=== PATIENT | male | born 1995 | race Caucasian/White ===

== ENCOUNTER 2017-06-24 20:20 | Inpatient (IN) | payer OTHER ==
[2017-06-24 20:27] VITALS: BMI 26.3
[2017-06-24] MEDS ORDERED: SODIUM CHLORIDE 0.9% 1000 ML INFUS.BAG IV ONE (23:26)
--- NOTE | 2017-06-24 23:39 | PDOC ---
History of Present Illness - General Chief Complaint: Pain, Acute Stated Complaint: PAIN, ACUTE Time Seen by Provider: 06/24/17 22:50 - History of Present Illness Initial Comments: 06/24/17 23:36 CHIEF COMPLAINT: abdominal pain HISTORY OF PRESENT ILLNESS: 22 yo M with of IBS sent to ED by PCP Carter for c/ o abdominal x 2 weeks. Patient states he has had intermittent abdominal pain and cramping over the past 2 weeks but today it became constant. Patient states he saw his doctor today who suspected appendicitis and sent him to the ED. Patient denies any fever, chills, nausea, vomiting but reports one episode diarrhea today. PAST MEDICAL HISTORY: Denies past medical history FAMILY HISTORY: Denies SOCIAL HISTORY: Denies tobacco, alcohol, illicit drug use. SURGICAL HISTORY: Denies ALLERGIES: No known drug allergies REVIEW OF SYSTEMS General/Constitutional: Denies fever or chills. Denies weakness, weight change. HEENT: Denies change in vision. Denies ear pain or discharge. Denies sore throat. Cardiovascular: Denies chest pain or shortness of breath. Respiratory: Denies cough, wheezing, or hemoptysis. Gastrointestinal: One episode diarrhea today. Denies nausea, vomiting, constipation. Denies rectal bleeding. Genitourinary: Denies dysuria, frequency, or change in urination. Musculoskeletal: Denies joint or muscle swelling or pain. Denies neck or back pain. Skin and breasts: Denies rash or easy bruising. Neurologic: Denies headache, vertigo, loss of consciousness, or loss of sensation PHYSICAL EXAM General Appearance: Well-appearing, appropriately dressed. No apparent distress. HEENT: EOMI, PERRLA, normal ENT inspection, normal voice, TMs normal, pharynx normal. No conjunctival pallor. No photophobia, scleral icterus. Respiratory/Chest: Lungs CTAB. Cardiovascular: RRR. S1, S2. Gastrointestinal/Abdominal: +tenderness to McBurney's point. Normal bowel sounds. Abdomen soft, non-distended. No tenderness or rebound tenderness. No organomegaly, pulsatile mass, guarding, hernia, hepatomegaly, splenomegaly. Musculoskeletal/Extremities: Normal inspection. FROM of all extremities, normal capillary refill. Pelvis Stable. No CVA tenderness. No tenderness to extremities, pedal edema, swelling, erythema or deformity. Integumentary: Appropriate color, dry, warm. No cyanosis, erythema, jaundice or rash Neurologic: hat blocking operator II-XII intact. Fully oriented, alert. Appropriate mood/affect. Motor strength 5/5. No appreciable EOM palsy, facial droop or sensory deficit. 06/25/17 05:02 Past History - Past Medical History Allergies/Adverse Reactions: Allergies Allergy/AdvReac Type Severity Reaction Status Date / Time No Known Allergies Allergy Unverified 03/29/14 16:25 Home Medications: Ambulatory Orders NK [No Known Home Medication] 06/24/17 - Psycho/Social/Smoking Cessation Hx Suicidal Ideation: No Smoking History: Current every day smoker Number of Cigarettes Smoked Daily: 6 Information on smoking cessation initiated: No Hx Alcohol Use: No Drug/Substance Use Hx: No *Physical Exam - Vital Signs Last Vital Signs Temp Pulse Resp BP Pulse Ox 99 F 95 H 18 129/80 97 06/24/17 20:25 06/24/17 20:25 06/24/17 20:25 06/24/17 20:25 06/24/17 20:25 ED Treatment Course - LABORATORY CBC & Chemistry Diagram: 06/25/17 00:15 06/25/17 00:15 Medical Decision Making - Medical Decision Making 06/24/17 23:39 22 yo M sent to ED by PCP for c/o abdominal x 2 weeks. -CBC, CMP, lipase, lactic acid -IVF -Ultrasound eval for appy 06/25/17 02:28 Ultrasound highly suspicious for appy. Will admit to admitting physician MD Stevens for MD Machado. -500 mg Flagyl -1g Cipro 06/25/17 04:38 MD Stevens paged twice without callback. Will admit to hospitalist. 06/25/17 05:02 *DC/Admit/Observation/Transfer Diagnosis at time of Disposition: Appendicitis Qualifiers: Appendicitis type: acute appendicitis Acute appendicitis type: unspecified acute appendicitis type Qualified Code(s): K35.80 - Unspecified acute appendicitis - Discharge Dispostion Admit: Yes - Referrals Referrals: Elmo Machado MD [Primary Care Provider] -
[2017-06-25] MEDS ORDERED: LIDOCAINE HCL 1%, 10 MG/ML (20ML VIAL) IJ ONE ×2
[2017-06-25] MEDS ORDERED: BUPIVACAINE HCL/PF 0.5% (5MG/ML) 10 ML VIAL IJ ONE ×2
[2017-06-25 00:35] LABS: BASOPHIL 0.3 % (0-2.0); EOSINOPHIL 1.4 % (0-4.5); MCH 31.2 pg (25.7-33.7); MCHC 33.7 g/dl (32.0-35.9); MEAN CELL VOLUME 92.6 fl (80-96); MEAN PLT VOLUME 9.5 fl (7.5-11.1); NEUTROPHILS 65.9 % (42.8-82.8); PLATELET COUNT 239 K/MM3 (134-434); RDW 13.1 % (11.9-15.9); WHITE BLOOD COUNT 11.3 K/mm3 (4.0-10.0)
[2017-06-25 01:12] LABS: ALBUMIN 4.2 g/dl (3.4-5.0); ANION GAP 7 (8-16); CO2 30 mmol/L (21-32); CREATININE 0.9 mg/dL (0.7-1.3); GLUCOSE,RANDOM 89 mg/dL (74-106); SGOT/AST 7 U/L (15-37); SGPT/ALT 27 U/L (12-78)
[2017-06-25 01:13] LABS: ALK PHOS 60 U/L (45-117); BILIRUBIN,TOTAL 0.6 mg/dL (0.2-1.0); TOT PROT 7.2 g/dl (6.4-8.2)
[2017-06-25 01:44] LABS: URINE APPEARANCE CLEAR; URINE BILIRUBIN NEGATIVE (NEGATIVE); URINE BLOOD NEGATIVE (NEGATIVE); URINE COLOR LTYELLOW; URINE GLUCOSE (UA) NEGATIVE (NEGATIVE); URINE KETONE NEGATIVE (NEGATIVE); URINE LEUK ESTERASE NEGATIVE (NEGATIVE); URINE NITRITE NEGATIVE (NEGATIVE); URINE PROTEIN NEGATIVE (NEGATIVE); URINE UROBILINOGEN NEGATIVE mg/dL (0.2-1.0)
[2017-06-25] MEDS ORDERED: METRONIDAZOLE 500 MG PREMIXED 100 ML IVPB ONE ×2 (02:24→02:27)
[2017-06-25] MEDS ORDERED: CEFTRIAXONE 1 GM in DEXTROSE 5%-WATER - 50 ML IVPB ONE (02:24)
[2017-06-25] MEDS ORDERED: CEFTRIAXONE 50 ML ONE (02:27)
--- NOTE | 2017-06-25 04:51 | HP ---
CHIEF COMPLAINT: Abdominal Pain PCP: Dr. Stacy Stevens HISTORY OF PRESENT ILLNESS: This is a 22 y/o male with a past medical history of IBS. Who presents to the ED with right sided abdominal pain x 2 weeks, and intermittent diarrhea. Patient reports taking Advil with little relief. Patient denies fever, chills, cough, SOB, CP, N/V, dysuria. ER course was notable for: (1) Pelvic/Bladder US- Highly suspicious AP (2) WBC 11.3 (3) Recent Travel: None PAST MEDICAL HISTORY: IBS PAST SURGICAL HISTORY: Denies Social History: Smoking: None Alcohol: None Drugs: None Lives with family Family History: Father: DM Grandfather: Alzheimer's Grandmother: Colon Ca Allergies No Known Allergies Allergy (Unverified 03/29/14 16:25) HOME MEDICATIONS: Home Medications Medication Instructions Recorded NK [No Known Home Medication] 06/24/17 REVIEW OF SYSTEMS CONSTITUTIONAL: Absent: fever, chills, diaphoresis, generalized weakness, malaise, loss of appetite, weight change HEENT: Absent: rhinorrhea, nasal congestion, throat pain, throat swelling, difficulty swallowing, mouth swelling, ear pain, eye pain, visual changes CARDIOVASCULAR: Absent: chest pain, syncope, palpitations, irregular heart rate, lightheadedness , peripheral edema RESPIRATORY: Absent: cough, shortness of breath, dyspnea with exertion, orthopnea, wheezing, stridor, hemoptysis GASTROINTESTINAL: abdominal pain, diarrhea Absent: abdominal distension, nausea, vomiting, constipation, melena, hematochezia GENITOURINARY: Absent: dysuria, frequency, urgency, hesitancy, hematuria, flank pain, genital pain MUSCULOSKELETAL: Absent: myalgia, arthralgia, joint swelling, back pain, neck pain SKIN: Absent: rash, itching, pallor HEMATOLOGIC/IMMUNOLOGIC: Absent: easy bleeding, easy bruising, lymphadenopathy, frequent infections ENDOCRINE: Absent: unexplained weight gain, unexplained weight loss, heat intolerance, cold intolerance NEUROLOGIC: Absent: headache, focal weakness or paresthesias, dizziness, unsteady gait, seizure, mental status changes, bladder or bowel incontinence PSYCHIATRIC: Absent: anxiety, depression, suicidal or homicidal ideation, hallucinations. PHYSICAL EXAMINATION Vital Signs - 24 hr 06/24/17 06/25/17 20:25 02:43 Temperature 99 F 98.1 F Pulse Rate 95 H Respiratory 18 Rate Blood Pressure 129/80 O2 Sat by Pulse 97 Oximetry (%) GENERAL: Awake, alert, and fully oriented, in no acute distress. HEAD: Normal with no signs of trauma. EYES: Pupils equal, round and reactive to light, extraocular movements intact, sclera anicteric, conjunctiva clear. No lid lag. EARS, NOSE, THROAT: Ears normal, nares patent, oropharynx clear without exudates. Moist mucous membranes. NECK: Normal range of motion, supple without lymphadenopathy, JVD, or masses. LUNGS: Breath sounds equal, clear to auscultation bilaterally. No wheezes, and no crackles. No accessory muscle use. HEART: Regular rate and rhythm, normal S1 and S2 without murmur, rub or gallop. ABDOMEN: Soft, not distended, no guarding, no masses. No hepatomegaly or splenomegaly. LLQ/RLQ/RMQ tenderness, hypoactive bowel sounds, +McBurney's point, + rebound tenderness MUSCULOSKELETAL: Normal range of motion at all joints. No bony deformities or tenderness. No CVA tenderness. UPPER EXTREMITIES: 2+ pulses, warm, well-perfused. No cyanosis. No clubbing. No peripheral edema. LOWER EXTREMITIES: 2+ pulses, warm, well-perfused. No calf tenderness. No peripheral edema. NEUROLOGICAL: Cranial nerves II-XII intact. Normal speech. Normal gait. PSYCHIATRIC: Cooperative. Good eye contact. Appropriate mood and affect. SKIN: Warm, dry, normal turgor, no rashes or lesions noted, normal capillary refill. Laboratory Results - last 24 hr 06/25/17 06/25/17 06/25/17 00:15 00:15 00:15 WBC 11.3 H RBC 5.29 Hgb 16.5 Hct 49.0 MCV 92.6 MCH 31.2 MCHC 33.7 RDW 13.1 Plt Count 239 MPV 9.5 Neutrophils % 65.9 Lymphocytes % 25.1 Monocytes % 7.3 Eosinophils % 1.4 Basophils % 0.3 Sodium 138 Potassium 4.0 Chloride 101 Carbon Dioxide 30 Anion Gap 7 L BUN 16 Creatinine 0.9 Creat Clearance w eGFR > 60 Random Glucose 89 Lactic Acid Calcium 9.0 Total Bilirubin 0.6 AST 7 L ALT 27 Alkaline Phosphatase 60 Total Protein 7.2 Albumin 4.2 Lipase 96 Urine Color Urine Appearance Urine pH Urine Protein Urine Glucose (UA) Urine Ketones Urine Blood Urine Nitrite Urine Bilirubin Urine Urobilinogen Ur Leukocyte Esterase 06/25/17 06/25/17 00:15 01:30 WBC RBC Hgb Hct MCV MCH MCHC RDW Plt Count MPV Neutrophils % Lymphocytes % Monocytes % Eosinophils % Basophils % Sodium Potassium Chloride Carbon Dioxide Anion Gap BUN Creatinine Creat Clearance w eGFR Random Glucose Lactic Acid 0.9 Calcium Total Bilirubin AST ALT Alkaline Phosphatase Total Protein Albumin Lipase Urine Color Ltyellow Urine Appearance Clear Urine pH 6.0 Urine Protein Negative Urine Glucose (UA) Negative Urine Ketones Negative Urine Blood Negative Urine Nitrite Negative Urine Bilirubin Negative Urine Urobilinogen Negative Ur Leukocyte Esterase Negative ASSESSMENT/PLAN: This is a 22 y/o male with a PMHx of IBS. Admitted to M/S for Acute Appendicitis for further evaluation of their emergent condition. Problem List - Problem (1) Appendicitis Assessment/Plan: - Likely due to Appendicitis vs IBS vs Gastritis - Montemayor Score 7 - Pelvic/Bladder US- suspicious for AP - Appreciate Surgical Consult - WBC 11.3 no shift, LA- wnl - Flagyl, Rocephin, Mefoxin given in ED - NPO - IVF - Morphine Sulfate prn - Monitor vitals Code(s): K37 - UNSPECIFIED APPENDICITIS Qualifiers: Appendicitis type: acute appendicitis Acute appendicitis type: unspecified acute appendicitis type Qualified Code(s): K35.80 - Unspecified acute appendicitis (2) Abdominal pain Assessment/Plan: - See Above Code(s): R10.9 - UNSPECIFIED ABDOMINAL PAIN (3) Leukocytosis Assessment/Plan: - Possibly due to AP vs Inflammation - Repeat CBC tomorrow - Empirically treated with ABX in ED - Monitor vitals Code(s): D72.829 - ELEVATED WHITE BLOOD CELL COUNT, UNSPECIFIED (4) DVT prophylaxis Assessment/Plan: - OOB - SCDs Code(s): SCX4792 - Visit type - Emergency Visit Emergency Visit: Yes ED Registration Date: 06/25/17 Care time: The patient presented to the Emergency Department on the above date and was hospitalized for further evaluation of their emergent condition. - New Patient This patient is new to me today: Yes Date on this admission: 06/25/17 - Critical Care Critical Care patient: No
[2017-06-25] MEDS ORDERED: DEXTROSE 5%-0.45% SALINE 1,000 ML IV SCH (05:00)
[2017-06-25] MEDS ORDERED: cefOXitin SODIUM 2 GM VIAL (RESTRICTED TO ID) IVPB ONE ×4 (05:12→20:30)
[2017-06-25] MEDS ORDERED: LORazepam 0.5 MG TABLET PO ONE (05:36)
[2017-06-25] MEDS ORDERED: CEFOXITIN SODIUM 1 GM in DEXTROSE 5%-WATER - 100 ML IVPB ONE ×2 (06:00→20:30)
[2017-06-25] MEDS ORDERED: morphine CARPU-JECT 2 MG/1 ML DISP.SYRIN IVPUSH PRN ×2 (06:23→16:22)
--- NOTE | 2017-06-25 11:01 | CONSULT ---
Consult Consult Specialty:: General Surgery Referred by:: ER Reason for Consultation:: appendicitis - History of Present Illness Chief Complaint: RLQ pain with diarrhea History of Present Illness: 22yo generally healthy M with h/o IBS with constipation on no meds noticed a small lump in his RLQ on 06/15 and began having intermittent central abdominal pain since then. A few days ago, he began having RLQ pain, which got worse, associated with some diarrhea, and he went to his PMD who sent him to ER for evaluation for appendicitis. WBC was 11.3, he was afebrile, and US showed dilated blind-ending tubular structure with edema, surrounding fluid but no discrete collection and likely appendicolith(s) present. He was admitted to hospitalist and surgery consulted for appendicitis. His pain this morning is better. No N/V, he is hungry. - History Source History Provided By: Patient Limitations to Obtaining History: No Limitations - Past Medical History Gastrointestinal: Yes: Constipation, Irritable Bowel Disease (in teens - tends to constipation, but takes no meds and cannot characterize usual interval) - Past Surgical History Additional Surgical History: sutures for laceration from mirror right forearm at 16 - Alcohol/Substance Use Hx Alcohol Use: Yes (1-2x/year) History of Substance Use: reports: Marijuana Date of Last Use: 06/23/17 (about 3x/week) - Smoking History Smoking history: Current every day smoker Have you smoked in the past 12 months: Yes Aproximately how many cigarettes per day: 10 (1/2ppd x 5 yrs) Home Medications - Allergies Allergies/Adverse Reactions: Allergies Allergy/AdvReac Type Severity Reaction Status Date / Time No Known Allergies Allergy Unverified 03/29/14 16:25 - Home Medications Home Medications: Ambulatory Orders NK [No Known Home Medication] 06/24/17 Family Disease History - Family Disease History Family Disease History: Diabetes: Father, CA: Grandparent (colon; other GP Alzheimer's), Other: Grandparent Review of Systems - Review of Systems Constitutional: denies: Chills, Fever Eyes: reports: Other (wears glasses). denies: Blurred Vision, Recent Change in Vision HENT: denies: Difficult Swallowing, Throat Pain Neck: denies: Swollen Glands, Tenderness Cardiovascular: denies: Chest Pain, Palpitations Respiratory: denies: Cough, SOB Gastrointestinal: reports: Abdominal Pain, Constipation, Diarrhea. denies: Nausea, Vomiting Genitourinary: denies: Burning, Dysuria Musculoskeletal: denies: Back Pain, Joint Swelling Integumentary: denies: Change in Color, Rash Neurological: denies: Dizziness, Headache Physical Exam Vital Signs: Vital Signs Temperature 97.9 F 06/25/17 08:13 Pulse Rate 82 06/25/17 08:13 Respiratory Rate 18 06/25/17 08:13 Blood Pressure 123/77 06/25/17 08:13 O2 Sat by Pulse Oximetry (%) 100 06/25/17 07:05 Constitutional: Yes: Well Nourished, No Distress, Calm Eyes: Yes: Conjunctiva Clear, EOM Intact HENT: Yes: Atraumatic, Normocephalic Cardiovascular: Yes: Regular Rate and Rhythm. No: Murmur Respiratory: Yes: Regular, CTA Bilaterally Gastrointestinal: Yes: Normal Bowel Sounds, Soft, Tenderness (focal at McBurney' s in RLQ with some referred tend from LLQ, no R/G). No: Distention, Tenderness , Rebound ...Rectal Exam: Yes: Deferred Renal/: No: CVA Tenderness - Left, CVA Tenderness - Right Musculoskeletal: No: Back Pain, Joint Swelling Extremities: No: Cool, Cyanosis Edema: No Peripheral Pulses WNL: Yes Integumentary: Yes: Other (scar on right forearm). No: Rash Neurological: Yes: Alert, Oriented Psychiatric: Yes: Alert, Oriented Labs: CBC, BMP 06/25/17 00:15 06/25/17 00:15 Imaging - Results Ultrasound: Report Reviewed (appendicolith with acute appendicitis, no discrete fluid collection in RLQ) Problem List - Problems (1) Acute appendicitis with localized peritonitis Assessment/Plan: NPO/IVF pain meds prn IV antibiotics GI/DVT prophylaxis discussed R/B/A of laparoscopic possible open appendectomy with patient including but not limited to bleeding, infection, injury to adjacent structures , intestinal leak or injury, intraabdominal abscess; alternatives include antibiotics, no surgery with risks of emergent surgery, recurrence, sepsis Patient wishes to proceed with operation. Plan surgery for ~2pm today. Will sign informed consent for same. Anticipate resuming po postop and likely d/c home in am if ambulating, voiding, tolerating diet, pain controlled with oral meds. Code(s): K35.3 - ACUTE APPENDICITIS WITH LOCALIZED PERITONITIS
--- NOTE | 2017-06-25 12:14 | PN ---
Physical Exam: SUBJECTIVE: Patient seen and examined OBJECTIVE: Vital Signs Period Temp Pulse Resp BP Sys/Garcia Pulse Ox Last 24 Hr 97.9 F-98 F 70-82 18-18 113-124/71-77 100-100 GENERAL: The patient is awake, alert, and fully oriented, in no acute distress. HEAD: Normal with no signs of trauma. EYES: PERRL, extraocular movements intact, sclera anicteric, conjunctiva clear. No ptosis. ENT: Ears normal, nares patent, oropharynx clear without exudates, moist mucous membranes. NECK: Trachea midline, full range of motion, supple. LUNGS: Breath sounds equal, clear to auscultation bilaterally, no wheezes, no crackles, no accessory muscle use. HEART: Regular rate and rhythm, S1, S2 without murmur, rub or gallop. ABDOMEN: Soft, nontender, nondistended, normoactive bowel sounds, no guarding, no rebound, no hepatosplenomegaly, no masses. EXTREMITIES: 2+ pulses, warm, well-perfused, no edema. NEUROLOGICAL: Cranial nerves II through XII grossly intact. Normal speech, gait not observed. PSYCH: Normal mood, normal affect. SKIN: Warm, dry, normal turgor, no rashes or lesions noted Laboratory Results - last 24 hr 06/25/17 05:00 Blood Type O POSITIVE Antibody Screen Negative Active Medications Generic Name Dose Route Start Last Admin Trade Name Freq PRN Reason Stop Dose Admin Cefoxitin Sodium 1 gm 06/25/17 12:00 Mefoxin (Restricted To Id) - IVPB 06/25/17 12:01 ONCE ONE Protocol Dextrose/Sodium Chloride 1,000 mls @ 100 mls/hr 06/25/17 05:00 06/25/17 05:13 D5-1/2ns - IV 100 mls/hr ASDIR VANESA Administration Morphine Sulfate 2 mg 06/25/17 06:23 Morphine Injection - IVPUSH Q6H PRN PAIN ASSESSMENT/PLAN:
[2017-06-25] MEDS ORDERED: CEFOXITIN SODIUM 1 GM in DEXTROSE 5%-WATER 100 ML IVPB ONE (12:30)
[2017-06-25] MEDS ORDERED: CEFOXITIN SODIUM IVPB ONE (12:30)
[2017-06-25] MEDS ORDERED: DEXTROSE 5% IVPB ONE (12:30)
[2017-06-25] MEDS ORDERED: WATER IVPB ONE (12:30)
[2017-06-25] MEDS ORDERED: DEXAMETHASONE SOD PHOSPHATE 4 MG/1 ML VIAL ONE (13:29)
[2017-06-25] MEDS ORDERED: MIDAZOLAM HCL 2 MG/2 ML SINGLE DOSE VIAL ONE (13:29)
[2017-06-25] MEDS ORDERED: ROCURONIUM BROMIDE 50 MG/5 ML VIAL ONE ×2 (13:29→14:45)
[2017-06-25] MEDS ORDERED: PROPOFOL 20 ML ONE (13:29)
[2017-06-25] MEDS ORDERED: BUPIVACAINE HCL/PF 0.5% (5MG/ML) 10 ML VIAL ONE (14:08)
[2017-06-25] MEDS ORDERED: LIDOCAINE HCL 1%, 10 MG/ML (20ML VIAL) ONE (14:08)
[2017-06-25] MEDS ORDERED: CEFOXITIN SODIUM 1 GM IVPB ONE (14:13)
[2017-06-25] MEDS ORDERED: cefOXitin SODIUM 1 GM VIAL (RESTRICTED TO ID) IVPB ONE (14:14)
[2017-06-25] MEDS ORDERED: LIDOCAINE HCL/PF 2% SDV 5ML VIAL ONE (14:18)
[2017-06-25] MEDS ORDERED: ONDANSETRON 4 MG/2 ML VIAL IVPUSH PRN ×2 (14:53→16:25)
[2017-06-25] MEDS ORDERED: LACTATED RINGERS SOLUTION 1,000 ML IV SCH ×2 (15:00→16:25)
[2017-06-25] MEDS ORDERED: KETOROLAC TROMETHAMINE 30 MG/1 ML VIAL ONE (15:24)
[2017-06-25] MEDS ORDERED: GLYCOPYRROLATE 0.2 MG/1 ML VIAL ONE (15:24)
[2017-06-25] MEDS ORDERED: NEOSTIGMINE METHYLSULFATE 0.5 MG/ML - 10 ML MDV ONE (15:24)
--- NOTE | 2017-06-25 16:12 | OP ---
Operative Note - Note: Operative Date: 06/25/17 Pre-Operative Diagnosis: acute appendicitis with localized peritonitis Operation: laparoscopic appendectomy Findings: enlarged, inflamed, bulbous appendix with normal base; stone palpable at distal end after removal Post-Operative Diagnosis: Same as Pre-op Surgeon: Jason Garcia Anesthesiologist/DOUGHNUT BATTER MIXER: Kyleigh Myles Anesthesia: General, Local (10ml 1% lidocaine + 0.5% marcaine) Specimens Removed: appendix to pathology Estimated Blood Loss (mls): 5 Drains & Tubes with Location: Castillo removed at end of case Drains, Volume Out (mls): 325 (UOP) Fluid Volume Replaced (mls): 500 (crystalloid) Operative Report Dictated: Yes
[2017-06-25] MEDS ORDERED: ACETAMINOPHEN 325 MG TABLET (FP) PO PRN ×3 (16:17→16:33)
[2017-06-25] MEDS ORDERED: HYDROmorphone HCL CARPU-JECT 1 MG/1 ML DISP.SYRIN IVPUSH PRN (16:25)
[2017-06-25] MEDS ORDERED: oxyCODONE HCL 5 MG TABLET PO PRN (16:33)
[2017-06-25] MEDS: DOCUSATE SODIUM 100 MG CAPSULE (FP) PO SCH (21:32)
[2017-06-26 07:25] LABS: BASOPHIL 0.2 % (0-2.0); EOSINOPHIL 0.1 % (0-4.5); MCH 31.1 pg (25.7-33.7); MCHC 33.9 g/dl (32.0-35.9); MEAN CELL VOLUME 91.8 fl (80-96); MEAN PLT VOLUME 8.7 fl (7.5-11.1); NEUTROPHILS 77.9 % (42.8-82.8); PLATELET COUNT 217 K/MM3 (134-434); RDW 12.9 % (11.9-15.9); WHITE BLOOD COUNT 12.2 K/mm3 (4.0-10.0)
[2017-06-26 08:01] LABS: ALK PHOS 59 U/L (45-117); ANION GAP 7 (8-16); BILIRUBIN,TOTAL 1.1 mg/dL (0.2-1.0); CO2 31 mmol/L (21-32); CREATININE 0.8 mg/dL (0.7-1.3); GLUCOSE,RANDOM 99 mg/dL (74-106); SGOT/AST 8 U/L (15-37); SGPT/ALT 23 U/L (12-78); TOT PROT 6.7 g/dl (6.4-8.2)
[2017-06-26 08:58] VITALS: BP 136/70; PULSE 90; TEMP 98.1
--- NOTE | 2017-06-26 09:44 | DS ---
Physical Examination Vital Signs: Vital Signs Temperature 98.1 F 06/26/17 08:56 Pulse Rate 90 06/26/17 08:56 Respiratory Rate 18 06/26/17 08:56 Blood Pressure 136/70 06/26/17 08:56 O2 Sat by Pulse Oximetry (%) 100 06/25/17 21:00 Findings/Remarks: General: NAD, A&Ox3 Lungs: CTA bilaterally Heart: RRR, S1S2 Abd: Lap sites with dressing x3. Mild tenderness throughout. Normoactive bowel sounds Ext: Warm, well-perfused. 2+ DP/PT bilaterally Neuro: CN 2-12 intact Labs: CBC, BMP 06/26/17 06:30 06/26/17 06:30 Discharge Summary Reason For Visit: APPENDICITIS Current Active Problems Abdominal pain (Acute) Acute appendicitis with localized peritonitis (Acute) Appendicitis (Acute) DVT prophylaxis (Acute) Leukocytosis (Acute) Condition: Improved - Instructions Diet, Activity, Other Instructions: Postoperative instructions: You had a laparoscopic appendectomy on 06/25/[address] Jason Garcia of [facility]. Resume your usual activities gradually, but no heavy exertion or lifting more than 10-15 pounds for 1 month. Remove dressings on Friday; sticky tapes underneath will fall off by themselves. You may shower daily starting then, just pat the incision areas dry. No bath or swimming until the skin incisions are healed. Eat lightly at first, but advance to your usual diet as tolerated. For pain, use Tylenol (regular or extra strength) or ibuprofen (200-600mg) every 6 hours as needed. It is ok to alternate one or the other every 3 hours. Do not take more than 3000mg of acetaminophen in a day. Take medications as prescribed or indicated on the labeling. Call Dr. Garcia's office at [phone] for your postop appointment (Friday 2 weeks after surgery). Call Dr. Garcia if you have: - increasing pain not responsive to pain medication - fever of 101F or higher - vomiting - unusual or increasing bleeding or drainage from wounds - increasing redness or swelling at wound sites - inability to urinate Also, see Dr. Machado within a couple of weeks. Referrals: Elmo Machado MD [Primary Care Provider] - Jason Garcia MD [Staff Physician] - Disposition: HOME - Home Medications Comprehensive Discharge Medication List: Ambulatory Orders Acetaminophen [Tylenol .Regular Strength -] 650 mg PO Q6H PRN #0 tablet Docusate Sodium [Colace -] 100 mg PO BID cap 06/26/17 Ibuprofen 600 mg PO Q6H #1 tablet 06/26/17
--- NOTE | 2017-06-26 09:52 | PN ---
Progress Note (short form) - Note Progress Note: Pt seen and examined in bed. Has generalized/gas and umbilical/incisional pain, 4/10. Has ambulated, voided, tolerated some food, not very hungry yet. Flatus but no BM. No fevers. RLQ pain is gone. About to have Tylenol. Vital Signs Period Temp Pulse Resp BP Sys/Garcia Pulse Ox Last 24 Hr 97.4 F-98.4 F 68-90 15-18 115-139/64-80 100-100 PE: RRR CTAB abd soft, normal bowel sounds, minimally distended, tender LUQ and incisionally , no R/G dressings C/D/I x3 A/P: POD1 s/p laparoscopic appendectomy doing well OOB/kelby diet voiding oral pain meds ready for discharge home with lifting restrictions can likely go with Tyl/ibuprofen prn for pain instructions are in d/c plan pt to call for f/u appt in 2 weeks gave him my card Problem List - Problems (1) Acute appendicitis with localized peritonitis Code(s): K35.3 - ACUTE APPENDICITIS WITH LOCALIZED PERITONITIS
--- NOTE | 2017-06-26 10:39 | PN ---
Progress Note (short form) - Note Progress Note: Anesthesia POD#1 S/P Laparoscopic appendectomy under GA VSS,no N/V,food is advanced, pain is under control. No complications to anesthesia seen. Kyleigh Myles MD
[2017-06-26] MEDS ORDERED: IBUPROFEN 600 MG TABLET (FP) PO ONE (11:28)
[2017-06-26] MEDS: DOCUSATE SODIUM 100 MG CAPSULE (FP) PO SCH (12:06)
--- NOTE | 2017-06-26 12:24 | EKG ---
Test Reason : Blood Pressure : / mmHG Vent. Rate : 079 BPM Atrial Rate : 079 BPM P-R Int : 136 ms QRS Dur : 080 ms QT Int : 386 ms P-R-T Axes : 044 078 056 degrees QTc Int : 442 ms NORMAL SINUS RHYTHM ST ELEVATION, CONSIDER EARLY REPOLARIZATION, PERICARDITIS, OR INJURY ABNORMAL ECG NO PREVIOUS ECGS AVAILABLE Confirmed by KYLE NICK MD ([id number]) on 06/26/2017 12:24:04 PM Referred By: Confirmed By:KYLE NICK MD
--- NOTE | 2017-06-27 15:13 | PATH ---
Surgical Pathology Report Patient Name: MARSHALL MCCAIN Med. Rec. #: [id number] /Age/Gender: 1995 (Age: 22) / M Account: [id number] Location: [address] [place] [address]/[facility] Taken: 06/25/2017 Received: 06/26/2017 Reported: 06/27/2017 Physicians: Cecelia Wellington ACNP Specimen(s) Received APPENDIX Clinical History Appendicitis Final Diagnosis APPENDIX, APPENDECTOMY: ACUTE APPENDICITIS WITH MURAL ABSCESS FORMATION AND PERIAPPENDICITIS. Electronically Signed Juan Manuel Wood M.D. Gross Description Received in formalin, labeled "appendix" is a 5.5 cm in length focally dilated vermiform appendix with a stapled margin of resection and moderate attached fat. The serosa is mcqueen-chavez and smooth. Sectioning reveals a dilated lumen containing a fecalith. The wall of the appendix ranges from 0.3 to 0.5 cm in thickness. Horseshoer sections are submitted in 3 cassettes. /06/26/201706/26/2017
--- NOTE | 2017-06-28 09:19 | OP ---
DATE OF OPERATION: 06/25/2017 PREOPERATIVE DIAGNOSIS: Acute appendicitis with localized peritonitis. POSTOPERATIVE DIAGNOSIS: Acute appendicitis with localized peritonitis. PROCEDURE: Laparoscopic appendectomy. SURGEON: Jason Garcia MD ANESTHESIA: General endotracheal and local (a total of 10 mL of 1% lidocaine plus 0.5% Marcaine). ESTIMATED BLOOD LOSS: 5 mL FLUIDS: 500 mL of crystalloid. URINE OUTPUT: 325 mL SPECIMEN: Appendix to Pathology. FINDINGS: An enlarged, inflamed, bulbous appendix with a normal base and a stone palpable at the distal end after removal. DISPOSITION: Stable and extubated to PACU. INDICATIONS FOR PROCEDURE: Patient is a 22-year-old, generally healthy male with a history of irritable bowel syndrome with constipation on no medications, who began having intermittent central and then right lower quadrant abdominal pain approximately 1-1/2 weeks ago. A few days ago, when the pain got particularly bad in his right lower quadrant associated with some diarrhea, he went to his primary care doctor who sent him to the emergency room for evaluation for appendicitis. His white count was 11.3. He was afebrile, and an ultrasound showed a dilated, blind- ending, tubular structure with edema and surrounding fluid but no discrete fluid collection and likely appendicolith. He was admitted to the hospitalist, and Surgery was consulted for appendicitis. Risks, benefits, and alternatives of laparoscopic, possible open appendectomy were discussed with the patient including, but not limited to, bleeding, infection, injury to surrounding structures, intestinal leak, intraabdominal abscess, and need for further procedures. The patient is agreeable to surgery and has signed informed consent for the same. He has received preoperative antibiotics and is now brought to the OR for the operation. OPERATIVE TECHNIQUE: The patient is brought to the operating room and laid supine on the operating table. Sequential compression devices are applied to bilateral lower extremities, and the patient had just received 1 g of cefoxitin immediately before coming to the operating room. One additional gram was given for preoperative antibiotic as he had only had 1 prior dose before that. After induction and intubation by Anesthesia, a Castillo catheter was placed in the patient's bladder, which was removed at the end of the case. His abdomen was then clipped of hair, prepped and draped in sterile fashion. A small supraumbilical midline incision was made with a scalpel and carried into subcutaneous tissues with electrocautery until the abdominal wall fascia was identified, scored, and elevated with Sal clamps. I attempted to enter the abdomen through the posterior sheath with the tip of a clamp but encountered some difficulty with the strength of the patient's tissues. Ultimately, with the fascia elevated, a tiny hole in the posterior sheath was made with the cautery, through which a clamp tip was introduced and stretched to make sure that we had entered into the abdominal cavity, and a fingertip was then used to also ensure entry into the abdominal cavity. Some underlying omental fat was noted coming up to the umbilicus which was later visualized from a separate port, presumed to be associated with a tiny umbilical hernia which was not addressed at this operation. A stay suture of 0 Vicryl was then placed in the fascia for later closure in figure-of-8 fashion, and the Amelia trocar introduced directly into the abdominal cavity and secured in place with the balloon. The abdomen was insufflated with carbon dioxide. The patient was placed in Trendelenburg position, and the laparoscope inserted to inspect the abdominal cavity. Two additional 5-mm ports were placed in the left lower quadrant and suprapubic areas under direct vision. The camera was switched to the left lower quadrant port, and 2 graspers were introduced. The small bowel was gently manipulated medially away from the right lower quadrant, and a large, bulbous, inflamed and edematous structure was immediately noted, representing the distal aspect of the appendix. This was followed back to the cecum, where the terminal ileum and veil of Treves were appreciated. The base of the appendix where it joined the cecum was noted to be fairly normal appearing, and a grasper was used to grasp the proximal portion of the appendix and elevate it such that a window at the base of the appendix could be made with a [place] dissector. The base of the appendix was then transected from its junction with the cecum with a blue load of the Endo SARAH stapler 45. The remainder of the appendix was then elevated and manipulated such that a mcqueen vascular 60 load of the Endo SARAH stapler was able to be introduced and used to transect most of the remaining mesoappendix. There was a small bit of tissue still attached, and an additional 45 load of the mcqueen Endo SARAH stapler was used to transect the remainder of the mesoappendix. Once the appendix was completely free, it was held up while the operative field was inspected. There was no bleeding noted from any staple lines. There had also been no significant amount of fluid noted in the pelvis. The appendix was then placed in an Endo Catch bag and retrieved out the umbilical port site with some stretching of the posterior sheath and the peritoneum. It was noted to contain a palpable stone in its most distal aspect and was passed off the table for a pathology specimen. The Amelia trocar and pneumoperitoneum were then re-established. The operative site was inspected, and the suction grinder outside diameter used to suction up a few small spots of blood clot and a scant amount of fluid from the right lower quadrant. The pelvis was inspected and again contained only a tiny bit of serosanguinous fluid. There was no purulence noted. The patient was returned to neutral position. The 5-mm ports were removed under direct vision, and the Amelia trocar and camera were then removed from the abdominal cavity, which was exsufflated of carbon dioxide. The stay suture at the umbilical site was tied to close the fascia there. Again , the umbilical hernia was not addressed at this operation. The port sites were then infiltrated with local anesthetic, and the skin closed with 4-0 Vicryl subcuticular sutures including a running at the umbilical site. The incisions were dressed with benzoin and Steri-Strips and covered with gauze and Tegaderm. The Castillo catheter was removed from the patient's bladder. Counts were correct at the end of the case. The patient was then awakened and extubated by Anesthesia. He was moved back to a stretcher and returned to the recovery room in stable condition, having tolerated the procedure well. Cecelia [id number] MTDD
== END 2017-06-26 12:29 | disposition home or self-care (01) | DRG 340 ==
LOC: JER 20:20 → J6S 06-25 04:38
PROVIDERS: ADMIT Internal Medicine; ATTEND Registered Nurse
PROC: 0DTJ4ZZ Resection of Appendix, Percutaneous Endoscopic Approach (ICD-10-PCS; principal; 2017-06-25 14:00)
DX: K35.3 Acute appendicitis with localized peritonitis (principal); K58.9 Irritable bowel syndrome, unspecified
CPT/HCPCS: 36415; 76856-TC; 80053; 81003; 83605; 83690; 85025; 86850; 86900; 86901; 87086; 88304-TC; 93005; 93010; 94760; 99284-25